=== PATIENT | female | born 1970 ===

== ENCOUNTER 2018-09-05 15:53 | Emergency (ER) | payer MEDICAID ==
--- NOTE | 2018-09-05 17:21 | RAD ---
Date of service: 09/05/2018 HISTORY: back and arm pain COMPARISON: Chest radiographs 07/16/2016. TECHNIQUE: Chest PA and lateral views FINDINGS: LUNGS: No active pulmonary disease. PLEURA: No significant pleural effusion identified. No pneumothorax apparent. CARDIOVASCULAR: No aortic atherosclerotic calcification present. Normal cardiac size. No pulmonary vascular congestion. OSSEOUS STRUCTURES: No significant abnormalities. VISUALIZED UPPER ABDOMEN: Normal. OTHER FINDINGS: None. IMPRESSION: No interval acute cardiopulmonary disease appreciated.
[2018-09-05 17:27] LABS: BASO % 0.4 % (0.0-2.0); EOS # 0.1 K/uL (0.0-0.7); EOS % 1.1 % (0.0-4.0); HEMOGLOBIN 12.6 g/dL (12.0-16.0); LYMPH # 1.7 K/uL (1.0-4.3); LYMPH % 20.6 % (20.0-40.0); MEAN CELL VOLUME 84.1 fl (81.0-99.0); MEAN CORPUSCULAR HEMOGLOBIN 28.6 pg (27.0-31.0); MEAN PLATELET VOLUME 7.7 fl (7.2-11.7); MONO # 0.4 K/uL (0.0-0.8); MONO % 5.4 % (0.0-10.0); NEUT # 5.8 K/uL (1.8-7.0); NEUT % 72.5 % (50.0-75.0); RBC 4.39 Mil/uL (3.80-5.20)
[2018-09-05 17:39] LABS: ALB/GLOB RATIO 1.3 (1.0-2.1); ALBUMIN 4.4 g/dL (3.5-5.0); ALT/SGPT 32 U/L (9-52); AST/SGOT 29 U/L (14-36); BLOOD UREA NITROGEN 15 mg/dl (7-17); CALCIUM 9.8 mg/dL (8.4-10.2); GFR NON-AFRICAN AMERICAN > 60
[2018-09-05 17:51] LABS: B-TYPE NATRIURETIC PEPTIDE 99.3 pg/ml (0-450)
--- NOTE | 2018-09-05 20:29 | ED PDOC ---
HPI: Chest Pain Time Seen by Provider: 09/05/18 16:25 Chief Complaint (Nursing): Chest Pain Chief Complaint (Provider): shoulder tightness, arm pain, chest discomfort History Per: Patient History/Exam Limitations: no limitations Quality: Tightness Associated Symptoms: denies: Nausea, Dyspnea, Diaphoresis, Syncope Exacerbating Factors: Movement Alleviating Factors: Rest Additional History Per: Prior Records Additional Complaint(s): 48yo female hx including lupus, presents c/o shoulder pain/tightness from L lateral neck to L arm, associated w mild chest discomfort/headache. Denies sweating, palpitations, dyspnea, edema, cough or orthopnea. No recent lupus flares, no fever, other joint pains or rash. Past Medical History Reviewed: Historical Data, Nursing Documentation, Vital Signs Vital Signs: Last Vital Signs Temp 98.1 F 09/05/18 19:30 Pulse 66 09/05/18 19:30 Resp 18 09/05/18 19:30 BP 126/68 09/05/18 19:30 Pulse Ox 97 09/05/18 19:30 - Medical History PMH: Anxiety, Depression, HTN, Hyperlipidemia, Migraine Denies: Chronic Kidney Disease - Surgical History Surgical History: Denies: CABG - Family History Family History: States: Unknown Family Hx - Living Arrangements Living Arrangements: With Family - Social History Current smoker - smoking cessation education provided: No - Immunization History Hx Tetanus Toxoid Vaccination: No Hx Influenza Vaccination: No Hx Pneumococcal Vaccination: No - Home Medications Home Medications: Ambulatory Orders Medication Instructions Recorded Alprazolam [Xanax] 0.5 mg PO HS PRN 09/10/14 Hydroxychloroquine Sulfate 100 mg PO DAILY 09/10/14 [Plaquenil] Celecoxib 100 mg PO BID PRN #30 capsule 10/24/16 Escitalopram [Lexapro] 20 mg PO DAILY 10/24/16 predniSONE [predniSONE Tab] 2 tab PO DAILY #8 tab 10/24/16 Aspirin [Ecotrin] 81 mg PO DAILY #15 tablet. 09/05/18 - Allergies Allergies/Adverse Reactions: Allergies Allergy/AdvReac Type Severity Reaction Status Date / Time Sulfa (Sulfonamide Allergy Mild RASH Verified 09/05/18 16:04 Antibiotics) MARYCARMEN Risk Score for UA/NSTEMI - MARYCARMEN Risk Score Age > 64: NO 3 or more CAD Risk Factors: YES Known CAD (Stenosis greater than 50%): NO Aspirin use in past 7 days: NO Severe Angina: NO EKG ST changes greater than 0.5mm: NO Positive Cardiac Marker: NO MARYCARMEN Score: 1 Risk %: 5% Wells Criteria for PE - Wells Criteria for Pulmonary Embolism Clinical Signs and Symptoms of DVT: No P.E is #1 Diagnosis, or Equally Likely: No Heart Rate >100: No Immobilization at least 3 days;Surgery previous 4 weeks: No Previous, objectively diagnosed PE or DVT: No Hemoptysis: No Malignancy w/treatment within 6 months, or palliative: No Total Score: 0 Review of Systems ROS Statement: Except As Marked, All Systems Reviewed And Found Negative Constitutional: Negative for: Fever ENT: Negative for: Nose Discharge, Throat Pain Cardiovascular: Positive for: Chest Pain. Negative for: Palpitations Respiratory: Negative for: Cough, Shortness of Breath Gastrointestinal: Negative for: Vomiting, Abdominal Pain Genitourinary Female: Negative for: Dysuria Musculoskeletal: Positive for: Neck Pain, Arm Pain, Back Pain. Negative for: Shoulder Pain, Hand Pain, Leg Pain Skin: Negative for: Rash, Lesions Neurological: Positive for: Headache. Negative for: Weakness, Numbness, Altered Mental Status, Dizziness Physical Exam - Reviewed Nursing Documentation Reviewed: Yes Vital Signs Reviewed: Yes - Physical Exam Appears: Positive for: Well, Non-toxic, No Acute Distress Head Exam: Positive for: ATRAUMATIC, NORMAL INSPECTION, NORMOCEPHALIC Skin: Positive for: Normal Color, Warm, DRY Eye Exam: Positive for: EOMI, Normal appearance, PERRL ENT: Positive for: Normal ENT Inspection Neck: Positive for: Painless ROM, See Diagram (L trapezius hypertonicity and mild tenderness, worsened pain w ROM neck and L shoulder) Cardiovascular/Chest: Positive for: Regular Rate, Rhythm Respiratory: Positive for: Normal Breath Sounds. Negative for: Respiratory Distress Gastrointestinal/Abdominal: Positive for: Normal Exam, Soft. Negative for: Tenderness Back: Positive for: Normal Inspection Extremity: Positive for: Normal ROM, Tenderness (L shoulder mild no erythema or edema or deformity). Negative for: Deformity, Swelling Neurological/Psych: Positive for: Awake, Alert, Normal Tone, Symmetric/Intact Strength. Negative for: Motor/Sensory Deficits - Laboratory Results Result Diagrams: 09/05/18 17:21 09/05/18 17:21 Lab Results: Troponin I < 0.0120 ng/mL (0.00-0.120) 09/05/18 17:21 NT-Pro-B Natriuret Pep 99.3 pg/ml (0-450) 09/05/18 17:21 Total Bilirubin 0.2 mg/dl (0.2-1.3) 09/05/18 17:21 AST 29 U/L (14-36) 09/05/18 17:21 ALT 32 U/L (9-52) 09/05/18 17:21 Alkaline Phosphatase 100 U/L (38-126) 09/05/18 17:21 Total Protein 7.8 G/DL (6.3-8.2) 09/05/18 17:21 Albumin 4.4 g/dL (3.5-5.0) 09/05/18 17:21 Globulin 3.4 gm/dL (2.2-3.9) 09/05/18 17:21 Albumin/Globulin Ratio 1.3 (1.0-2.1) 09/05/18 17:21 - ECG ECG: Positive for: Interpreted By Me ECG Rhythm: Positive for: Normal QRS, Normal ST Segment, Sinus Rhythm. Negative for: ST/T Changes Rate: 68 O2 Sat by Pulse Oximetry: 97 - Radiology X-Ray: Read By Radiologist X-Ray Interpretation: No Acute Disease Medical Decision Making Medical Decision Making: workup for atypical chest pain with musculoskeltal component initiated EKG unremarkable and vitals stable labs reviewed trop negative and repeated 3hrs, remains negative Improved over course of ED after NSAID and tylenol ASA also initiated given risk factors. Given lack of persistent pain, improvement in ED, neg trops x2, unremarkable vitals, normal EKG and unremarkable CXR, HEART score 2, may followup outpt cardio and her PMD for definitive provocative testing. Understood all recs, avoid heavy exertion/exercise until sees PMD/cardio, and return to ER for any new or worsening symptoms. Disposition - Clinical Impression Clinical Impression: Chest pain - Patient ED Disposition Is Patient to be Admitted: No Counseled Patient/Family Regarding: Studies Performed, Diagnosis, Rx Given - Disposition Referrals: Marcus Raya MD [Staff Provider] - Disposition: Routine/Home Disposition Time: 21:20 Condition: STABLE Additional Instructions: See cardiology for followup and further testing. Avoid heavy exertion until cleared by cardiology. Return to ER for any worse or new symptoms. Prescriptions: Aspirin [Ecotrin] 81 mg PO DAILY #15 tablet. Instructions: Chest Pain (DC), Heart Disease in Women (DC) Forms: [facility] ([place])
[2018-09-05 21:41] VITALS: BP 122/78; RESP 16; TEMP 98.2
--- NOTE | 2018-09-06 09:41 | CARD ---
APPROVED REPORT Date of service: 09/05/2018 EKG Measurement Heart [id number] <Conclusion> Normal sinus rhythm Normal ECG
[2018-09-06 13:08] VITALS: O2SAT 97
[2018-09-06 13:13] VITALS: PULSE 68
== END 2018-09-05 21:39 | disposition home or self-care (01) ==
LOC: H.ER 15:53
DX: R07.89 Other chest pain (principal)
CPT/HCPCS: 71046; 80053; 81025; 83735; 83880; 84484; 85025; 93005; 96374; 99284; J1885